=== PATIENT | female | born 1995 ===

== ENCOUNTER 2017-06-05 11:50 | Inpatient (IN) ==
[2017-06-05] MEDS ORDERED: MEPERIDINE 50 MG/1 ML VIAL IV PRN (12:16)
[2017-06-05] MEDS ORDERED: BUTORPHANOL 2 MG/ML VIAL IV PRN (12:16)
[2017-06-05] MEDS: LACTATED RINGERS 1,000 ML IV SCH ×3 (12:20→22:04)
[2017-06-05] MEDS ORDERED: OXYTOCIN/LR 20 UNIT/1,000 ML BAG IV SCH ×2 (12:30→13:00)
[2017-06-05 12:40] LABS: Basophils % 0.1 % (0.0-0.8); Eosinophils % 0.4 % (0.00-10.9); Hematocrit 34.1 VOL% (35.7-47.0); Hemoglobin 11.6 GM/DL (12.0-16.0); Immature Granulocytes % 0.4 %; Immature Granulocytes Absolute 0.03 #; Lymphocytes # 0.9 10*3/uL (1.4-4.0); Lymphocytes % 10.5 % (21.3-54.2); Mean Corpuscular Hemoglobin 33 PG (27-34); Mean Corpuscular Volume 95.8 FL (87-102); Mean Platelet Volume 11.8 FL (9.6-12.0); Monocytes # 0.5 10*3/uL (0.11-0.8); Monocytes % 5.5 % (1.7-12.7); Neutrophils % 83.1 % (38.7-73.9); Platelet Count 167 T/CUMM (130-400); Red Blood Count 3.56 MC/CUMM (3.8-5.5); Red Cell Distribution Width 13.4 % (9.3-17.3); White Blood Count 8.4 T/CUMM (4-12)
[2017-06-05 13:14] LABS: Alanine Aminotransferase 22 U/L (13-56); Albumin 2.5 G/DL (3.4-5.0); Alkaline Phosphatase 184 U/L (45-117); Aspartate Amino Transferase 14 U/L (0-37); Bilirubin,Total < 0.39 MG/DL (0.2-1.0); Blood Urea Nitrogen 10 MG/DL (7-18); Calcium 8.4 MG/DL (8.5-10.1); Glucose 120 MG/DL (74-106); Osmolality,Calculated 276.5 MOS/KG (273-304); Potassium 3.5 MMOL/L (3.5-5.1); Sodium 139 MMOL/L (136-145); Total Protein 5.8 G/DL (6.4-8.3)
[2017-06-05] MEDS: ONDANSETRON 4 MG/2 ML VIAL IV PRN ×2 (17:04→23:39)
[2017-06-05] MEDS ORDERED: FAMOTIDINE 20 MG/2 ML VIAL IV ONE (17:08)
[2017-06-05] MEDS ORDERED: CITRIC ACID/SODIUM CITRATE 30 ML UDCUP PO ONE (17:08)
[2017-06-05] MEDS ORDERED: diphenhydrAMINE 50 MG/1 ML VIAL IV PRN ×2 (17:08)
[2017-06-05] MEDS ORDERED: LACTATED RINGERS 1,000 ML IV ONE (17:08)
[2017-06-05] MEDS ORDERED: hydrOXYzine HCL 25 MG/1 ML VIAL IM PRN (17:08)
[2017-06-05] MEDS ORDERED: PROMETHAZINE 25 MG/1 ML VIAL IM ONE (17:08)
[2017-06-05] MEDS ORDERED: ePHEDrine 50 MG/ML AMP IV PRN (17:08)
[2017-06-05] MEDS ORDERED: LACTATED RINGERS 1,000 ML IV SCH (17:30)
[2017-06-05] MEDS ORDERED: fentaNYL 2 MCG/ROPIV 0.2% EPID 150 ML EPIDURAL SCH (17:30)
[2017-06-05] MEDS ORDERED: ACETAMINOPHEN 325 MG TABLET PO PRN (23:19)
[2017-06-05] MEDS ORDERED: BENZOCAINE 20%/MENTHOL 0.5% SPRAY 56 GM CAN TOP PRN (23:19)
[2017-06-05] MEDS ORDERED: oxyCODONE/ACETAMINOPHEN 5-325 MG TABLET PO PRN (23:19)
[2017-06-05] MEDS ORDERED: ONDANSETRON 4 MG/2 ML VIAL IV PRN (23:19)
[2017-06-05] MEDS ORDERED: BISACODYL 10 MG SUPP RECTAL PRN (23:19)
[2017-06-05] MEDS ORDERED: LANOLIN 50% CREAM 0.3 OZ TUBE TOP PRN (23:19)
[2017-06-05] MEDS ORDERED: OXYTOCIN/LR 20 UNIT/1,000 ML BAG IV ONE (23:19)
[2017-06-05] MEDS ORDERED: HYDROCORTISONE 2.5% RECTAL CREAM 30 GM TUBE TOP PRN (23:24)
[2017-06-05] MEDS ORDERED: WITCH HAZEL PADS 100/JAR TOP PRN (23:25)
[2017-06-05] MEDS ORDERED: RHO(D) IMMUNE GLOBULIN 300 MCG SYRINGE IM ONE (23:30)
[2017-06-05] MEDS ORDERED: MEASLES/MUMPS/RUBELLA VACCINE 0.5 ML VIAL SUBCUT ONE (23:30)
[2017-06-05] MEDS ORDERED: DIPH/TET/ACEL PERT BOOSTER VACCINE 0.5 ML VIAL IM ONE (23:30)
[2017-06-05 23:47] LABS: Apearance,Urine Slightly Hazy (Clear); Bilirubin,Urine Negative (Negative); Blood, Urine Large mg/dL (Negative); Glucose,Urine (UA) Negative (Negative); Ketones,Urine 20 mg/dL (Negative); Mucus,Urine Few /LPF (Occasional); Nitrite,Urine Negative (Negative); Protein,Urine 30 MG/DL; RBC,Urine 496 /HPF (0-4); Squamous Epithelial Cell,Urine Occasional /HPF (0-10); Urine Color Yellow (Yellow); Urine Specific Gravity 1.026 (1.001-1.035); WBC,Urine 2 /HPF (0-6)
[2017-06-06] MEDS: IBUPROFEN 800 MG TABLET PO PRN ×3 (03:54→22:55)
[2017-06-06] MEDS: oxyCODONE/ACETAMINOPHEN 5-325 MG TABLET PO PRN ×3 (04:02→23:00)
[2017-06-06 06:59] LABS: Basophils % 0.1 % (0.0-0.8); Hematocrit 25.3 VOL% (35.7-47.0); Immature Granulocytes % 0.5 %; Immature Granulocytes Absolute 0.05 #; Lymphocytes # 0.7 10*3/uL (1.4-4.0); Lymphocytes % 6.7 % (21.3-54.2); Mean Corpuscular HGB Conc 34.4 GM/DL (32-36); Mean Corpuscular Hemoglobin 32 PG (27-34); Mean Corpuscular Volume 93.4 FL (87-102); Mean Platelet Volume 12.6 FL (9.6-12.0); Monocytes # 0.8 10*3/uL (0.11-0.8); Neutrophils # 9.4 10*3/uL (1.4-7.4); Neutrophils % 85.7 % (38.7-73.9); Platelet Count 142 T/CUMM (130-400); Red Cell Distribution Width 13.4 % (9.3-17.3)
[2017-06-06 07:00] LABS: Hemoglobin 8.7 GM/DL (12.0-16.0); Red Blood Count 2.71 MC/CUMM (3.8-5.5)
[2017-06-06 07:28] LABS: Giant Platelets Few; Hypochromasia 1+; Platelet Estimate Normal
[2017-06-06] MEDS: DOCUSATE SODIUM 100 MG CAPSULE PO SCH ×2 (09:59→20:43)
[2017-06-07] MEDS: IBUPROFEN 800 MG TABLET PO PRN ×2 (04:52→12:06)
[2017-06-07] MEDS: oxyCODONE/ACETAMINOPHEN 5-325 MG TABLET PO PRN (04:54)
[2017-06-07 07:11] VITALS: BP 124/78
[2017-06-07] MEDS: DOCUSATE SODIUM 100 MG CAPSULE PO SCH (09:18)
[2017-06-10 12:49] LABS: Anti SS-A Antibodies 87 EU/ML; Anti SS-B Antibodies < 16 EU/ML; Anti-Nuclear Antibody Pattern SPECKLED; Double Stranded DNA Antibodies < 25.0 IU/ML
== END 2017-06-07 13:25 | disposition home or self-care (01) | DRG 560 ==
LOC: N.LDOUT 11:50 → N.LD 12:00 → N.OB 06-06 02:31
PROVIDERS: ADMIT Obstetrics & Gynecology; ATTEND Obstetrics & Gynecology

== ENCOUNTER 2018-11-18 10:51 | Inpatient (IN) ==
[2018-11-18] MEDS ORDERED: BUTORPHANOL 2 MG/ML VIAL IV PRN (11:46)
[2018-11-18] MEDS ORDERED: ONDANSETRON 4 MG/2 ML VIAL IV PRN ×2 (11:46→17:07)
[2018-11-18] MEDS ORDERED: MEPERIDINE 50 MG/1 ML VIAL IV PRN (11:46)
[2018-11-18] MEDS ORDERED: OXYTOCIN/LR 20 UNIT/1,000 ML BAG IV SCH (12:00)
[2018-11-18] MEDS ORDERED: LACTATED RINGERS 1,000 ML IV SCH (12:00)
[2018-11-18 12:19] LABS: Basophils % 0.1 % (0.0-0.8); Eosinophils % 0.3 % (0.00-10.9); Hemoglobin 9.9 GM/DL (12.0-16.0); Immature Granulocytes % 0.4 %; Immature Granulocytes Absolute 0.03 #; Lymphocytes # 0.8 10*3/uL (1.4-4.0); Lymphocytes % 11.6 % (21.3-54.2); Mean Corpuscular HGB Conc 31.9 GM/DL (32-36); Mean Platelet Volume 10.9 FL (9.6-12.0); Monocytes % 7.2 % (1.7-12.7); Neutrophils % 80.4 % (38.7-73.9); Platelet Count 170 T/CUMM (130-400); Red Blood Count 3.23 MC/CUMM (3.8-5.5); White Blood Count 7.3 T/CUMM (4-12)
[2018-11-18 12:56] LABS: Alanine Aminotransferase 16 U/L (13-56); Albumin 2.4 G/DL (3.4-5.0); Alkaline Phosphatase 180 U/L (45-117); Aspartate Amino Transferase 12 U/L (0-37); Bilirubin,Total < 0.39 MG/DL (0.2-1.0); Blood Urea Nitrogen 11 MG/DL (7-18); Calcium 8.6 MG/DL (8.5-10.1); Glucose 87 MG/DL (74-106); Osmolality,Calculated 278.3 MOS/KG (273-304); Total Protein 6.2 G/DL (6.4-8.3)
[2018-11-18] MEDS ORDERED: diphenhydrAMINE 50 MG/1 ML VIAL IV PRN ×2 (13:21)
[2018-11-18] MEDS ORDERED: FAMOTIDINE 20 MG/2 ML VIAL IV ONE (13:21)
[2018-11-18] MEDS ORDERED: NALOXONE 0.4 MG/ML VIAL IV PRN (13:21)
[2018-11-18] MEDS ORDERED: CITRIC ACID/SODIUM CITRATE 30 ML UDCUP PO ONE (13:21)
[2018-11-18] MEDS ORDERED: ePHEDrine 50 MG/ML AMP IV PRN (13:21)
[2018-11-18] MEDS ORDERED: LACTATED RINGERS 1,000 ML IV ONE (13:21)
[2018-11-18] MEDS ORDERED: fentaNYL 2 MCG/ROPIV 0.2% EPID 100 ML EPIDURAL SCH (13:30)
[2018-11-18] MEDS ORDERED: AMPICILLIN INJ 2,000 MG in SODIUM CHLORIDE 0.9% 100 ML IV ONE (13:58)
[2018-11-18 14:47] LABS: Apearance,Urine CLEAR (Clear); Bilirubin,Urine Negative (Negative); Blood, Urine Negative (Negative); Glucose,Urine (UA) Negative (Negative); Ketones,Urine Negative (Negative); Mucus,Urine Occasional /LPF (Occasional); Nitrite,Urine Negative (Negative); Protein,Urine Negative; RBC,Urine 1 /HPF (0-4); Squamous Epithelial Cell,Urine Occasional /HPF (0-10); Urine Color Yellow (Yellow); Urine Urobilinogen < 2.0 EU/DL (0.2-1.0); WBC,Urine 1 /HPF (0-6)
[2018-11-18] MEDS ORDERED: miSOPROStol 200 MCG TABLET ONE (16:57)
[2018-11-18] MEDS ORDERED: METHYLERGONOVINE 0.2 MG/1 ML AMP IM ONE (16:58)
[2018-11-18] MEDS ORDERED: miSOPROStol 200 MCG TABLET RECTAL ONE (16:58)
[2018-11-18] MEDS ORDERED: METHYLERGONOVINE 0.2 MG/1 ML AMP ONE (16:58)
[2018-11-18] MEDS ORDERED: OXYTOCIN/LR 20 UNIT/1,000 ML BAG IV ONE (17:07)
[2018-11-18] MEDS ORDERED: MEASLES/MUMPS/RUBELLA VACCINE 0.5 ML VIAL SUBCUT ONE (17:07)
[2018-11-18] MEDS ORDERED: BENZOCAINE 20%/MENTHOL 0.5% SPRAY 56 GM CAN TOP PRN (17:07)
[2018-11-18] MEDS ORDERED: HYDROCORTISONE 2.5% RECTAL CREAM 30 GM TUBE TOP PRN (17:07)
[2018-11-18] MEDS ORDERED: ACETAMINOPHEN 325 MG TABLET PO PRN (17:07)
[2018-11-18] MEDS ORDERED: WITCH HAZEL PADS 100/JAR TOP PRN (17:07)
[2018-11-18] MEDS ORDERED: RHO(D) IMMUNE GLOBULIN 300 MCG SYRINGE IM ONE (17:07)
[2018-11-18] MEDS ORDERED: DIPH/TET/ACEL PERT BOOSTER VACCINE 0.5 ML VIAL IM ONE (17:07)
[2018-11-18] MEDS ORDERED: BISACODYL 10 MG SUPP RECTAL PRN (17:07)
[2018-11-18] MEDS ORDERED: LANOLIN 50% CREAM 0.3 OZ TUBE TOP PRN (17:07)
[2018-11-18] MEDS ORDERED: oxyCODONE/ACETAMINOPHEN 5-325 MG TABLET PO PRN (17:07)
[2018-11-18 17:55] LABS: Barbiturates Screen,Urine Negative (Negative); Benzodiazepines Screen,Urine Negative (Negative); Cannabinoid Screen,Urine Negative (Negative); Opiate Screen,Urine Negative (Negative); Phencyclidine Screen,Urine Negative (Negative)
[2018-11-18] MEDS: DOCUSATE SODIUM 100 MG CAPSULE PO SCH (21:35)
[2018-11-18] MEDS: IBUPROFEN 800 MG TABLET PO PRN (23:48)
[2018-11-19] MEDS: oxyCODONE/ACETAMINOPHEN 5-325 MG TABLET PO PRN ×3 (01:12→17:50)
[2018-11-19 05:32] LABS: Hemoglobin 8.5 GM/DL (12.0-16.0); Mean Corpuscular Volume 95.2 FL (87-102); Red Blood Count 2.73 MC/CUMM (3.8-5.5); White Blood Count 8.6 T/CUMM (4-12)
[2018-11-19 05:33] LABS: Basophils % 0.1 % (0.0-0.8); Eosinophils % 0.2 % (0.00-10.9); Immature Granulocytes % 0.3 %; Immature Granulocytes Absolute 0.03 #; Lymphocytes # 1.2 10*3/uL (1.4-4.0); Lymphocytes % 14.4 % (21.3-54.2); Mean Corpuscular HGB Conc 32.7 GM/DL (32-36); Mean Platelet Volume 11.4 FL (9.6-12.0); Platelet Count 156 T/CUMM (130-400); Red Cell Distribution Width 13.1 % (9.3-17.3)
[2018-11-19] MEDS: IBUPROFEN 800 MG TABLET PO PRN ×2 (09:55→21:25)
[2018-11-19] MEDS: DOCUSATE SODIUM 100 MG CAPSULE PO SCH ×2 (09:55→21:20)
[2018-11-20] MEDS: oxyCODONE/ACETAMINOPHEN 5-325 MG TABLET PO PRN ×2 (00:09→08:10)
[2018-11-20] MEDS: IBUPROFEN 800 MG TABLET PO PRN ×2 (06:19→12:25)
[2018-11-20] MEDS: DOCUSATE SODIUM 100 MG CAPSULE PO SCH (10:10)
[2018-11-20 11:53] VITALS: BP 109/70
== END 2018-11-20 12:40 | disposition home or self-care (01) | DRG 560 ==
LOC: N.LDOUT 10:51 → N.LD 10:52 → N.OB 20:46
PROVIDERS: ADMIT Obstetrics & Gynecology; ATTEND Obstetrics & Gynecology